=== PATIENT | male | born 1965 | race African-American/Black ===

== ENCOUNTER 2025-07-30 23:28 | Observation (INO) ==
--- NOTE | 2025-07-30 23:42 | Emergency Department Note ---
Impression & Plan Suicidal ideation, Altered mental status, Acute hyperglycemia, Acute dehydration ED Provider Note Name: SARAVANAN PENA Age: 60 Sex: Male Arrives Via: Ambulance Informant: Patient, EMS, nursing staff ED Provider: Dustin Paris MD Chief Complaint: Suicidal ideation Impression: As per impressions above Medical Decision Makin-year-old gentleman with a history of diabetes, anxiety/depression, alcoholism, addiction to crack cocaine. Patient was recently hospitalized at [facility] from the [facility]. Patient developed worsening thoughts of wanting to harm self and due to suicidal ideation was transferred to [facility] for further evaluation. Patient's arrival he was apparently quite altered and I was immediately called to his bedside. Patient is laying in bed answering questions or keeping eyes closed and symptoms of altered mental status have essentially resolved. Patient does not exhibit any postictal type exam. Laboratory workup began and given report of elevated blood sugar by EMS I did obtain a VBG. Fortunately patient is not acidotic. He is quite hyperglycemic with a blood sugar greater than 400. A CT scan of the head is unremarkable. Labs are unremarkable otherwise with no evidence of infectious etiology. There was a report of some hypoglycemia for EMS however his oxygen is good here and a chest x-ray is unremarkable with clear lung sounds by my examination. Given the patient's significant elevated blood sugar and really minimal information about him including this episode of altered mental status I do not feel medically clear him in a reasonable amount of time for further psychiatric evaluation. Thus hospitalist service was consulted for further management. Triage/Nursing Notes reviewed by Me External Chart Review by me: No previous records available Differential:Mood disorder, infection, hypoglycemia, electrolyte abnormalities, cardiac sources, intracerebral event, toxicologic, trauma, neurologic, as well as other pathologies. Vital Signs: reviewed and remarkable for no significant abnormalities Interventions: Normal saline bolus. Discussed with hospitalist and will defer insulin management to them Labs:ED labs Reviewed by me and remarkable for significantly elevated blood sugar Imagin view chest x-ray as per my interpretation no infiltrate or effusion appreciated. CT of the head without contrast as per my informal interpretation no hemorrhage, mass effect appreciated EKG:As per my interpretation. Indication altered mental status. Sinus bradycardia 47 bpm with a QTc of 408. There is no ectopy nor ischemia. There are no previous EKGs for comparison Cardiac/Tele Monitoring: Cardiac Monitoring: An Order was placed for continuous cardiac monitoring. The monitor shows a rate of 50 with a sinus migel rhythm. Consults:I discussed case with Dr. Langston who will further evaluate and manage. Plan: Disposition:Hospitalization. Condition: Fair History of Present Illness: 60-year-old male arrives for evaluation of suicidal ideation in addition to altered mental status. [facility]. Patient comes from the [facility]. He notes that since getting has had worsening depression. He now wishes to kill himself. No specific plan. EMS was contacted as this was beyond capabilities of [facility]. EMS reports that blood sugar on patient was reading too high to give number as well as patient having oxygen in the 80s. He was placed on oxygen on the way to the ER. On arrival patient became worsening confused and altered not responding to questions. I was called directly to the room. On my evaluation patient is answering questions. He states he just is not feeling well. He notes that he is a diabetic and has not had his insulin since around lunchtime. He thinks he has been having a normal dosing. Notes a history of severe pancreatitis regarding abdominal surgery following severe alcohol addiction. Denies any recent alcohol use. States he last used cocaine about 5 days ago Past Medical History:Diabetes, anxiety depression Home Medications: Insulin, Lexapro, trazodone Allergies: No reported drug allergy Vitals:Blood Pressure: 131/86, Pulse 62, RR 14, T 37.4C, O2 99% on RA Physical Exam: GENERAL: Patient is distant/dehydrated appearing and in minimal distress. HEAD: AT/NC RESPIRATORY: No dyspnea. Clear to auscultation and equal bilaterally. CARDIOVASCULAR: Regular rate and rhythm.No murmur appreciated. GASTROINTESTINAL: Abdomen soft, non-tender, no peritonitis. Large ventral scar (states due to pancreatitis from alcohol abuse) EXTREMITIES: Normal motion all extremities, no cyanosis, no edema. NEUROLOGIC: Somnolent but answering questions. No focal neurologic deficits appreciated SKIN: No rash, no jaundice, no diaphoresis. PSYCH: Appropriate GCS: 14 ED Course: Times/Reassessments: Patient stable sleeping in bed and Dustin Paris MD Past Med/Surg History Problem List (Updated 07/31/25 @ 03:29 by Dustin Paris MD) Acute dehydration (Acute) Acute hyperglycemia (Acute) Altered mental status (Acute) Suicidal ideation (Acute) Social History Smoking Status: Current every day smoker Allergies Allergies Allergy/AdvReac Type Severity Reaction Status Date / Time No Known Allergies Allergy Verified 07/31/25 03:17 Home Meds Home Medications Medication Instructions Recorded Confirmed Lexapro 10 mg PO DAILY 07/31/25 07/31/25 insulin lispro 1 - 12 units subcut TID 07/31/25 07/31/25 trazodone 300 mg PO HS 07/31/25 07/31/25 Results & Data (ED) Vital Signs Vital Signs - 24 hr 07/30/25 23:36 07/30/25 23:37 07/30/25 23:37 Temperature Temperature Source Pulse Rate 53 L Pulse Rate from SpO2 Sensor Respiratory Rate Respiratory Effort / Characteristics Respiratory Depth Blood Pressure 142/91 H 142/91 H Blood Pressure Mean 103 103 Pulse Oximetry Oxygen Delivery Method Sepsis Recent Fever Within 48 Hours Sepsis New/Unexplained Change in Mental Status Sepsis Action Taken by Nursing 07/30/25 23:37 07/30/25 23:37 07/30/25 23:37 Temperature Temperature Source Pulse Rate Pulse Rate from SpO2 Sensor Respiratory Rate Respiratory Effort / Characteristics Respiratory Depth Blood Pressure 142/91 H 142/91 H 142/91 H Blood Pressure Mean 103 103 103 Pulse Oximetry Oxygen Delivery Method Sepsis Recent Fever Within 48 Hours Sepsis New/Unexplained Change in Mental Status Sepsis Action Taken by Nursing 07/30/25 23:39 07/30/25 23:39 07/30/25 23:39 Temperature 37.4 C Temperature Source Oral Pulse Rate 59 L 64 Pulse Rate from SpO2 Sensor 61 Respiratory Rate 18 20 Respiratory Effort / Characteristics Non-Labored Non-Labored Respiratory Depth Normal Normal Blood Pressure 142/91 H Blood Pressure Mean 108 Pulse Oximetry 100 100 Oxygen Delivery Method Room Air Sepsis Recent Fever Within 48 Hours No Sepsis New/Unexplained Change in Mental Status No Sepsis Action Taken by Nursing No Action Required 07/30/25 23:42 07/30/25 23:51 07/31/25 00:00 Temperature Temperature Source Pulse Rate 55 L 52 L 55 L Pulse Rate from SpO2 Sensor 56 L 51 L 55 L Respiratory Rate 18 19 14 Respiratory Effort / Characteristics Respiratory Depth Blood Pressure Blood Pressure Mean Pulse Oximetry 100 99 100 Oxygen Delivery Method Sepsis Recent Fever Within 48 Hours Sepsis New/Unexplained Change in Mental Status Sepsis Action Taken by Nursing 07/31/25 00:12 07/31/25 00:18 07/31/25 00:18 Temperature Temperature Source Pulse Rate 60 Pulse Rate from SpO2 Sensor 60 Respiratory Rate 18 Respiratory Effort / Characteristics Respiratory Depth Blood Pressure 144/93 H 144/93 H Blood Pressure Mean 101 101 Pulse Oximetry 100 Oxygen Delivery Method Sepsis Recent Fever Within 48 Hours Sepsis New/Unexplained Change in Mental Status Sepsis Action Taken by Nursing 07/31/25 00:18 07/31/25 00:18 07/31/25 00:18 Temperature Temperature Source Pulse Rate Pulse Rate from SpO2 Sensor Respiratory Rate Respiratory Effort / Characteristics Respiratory Depth Blood Pressure 144/93 H 144/93 H 144/93 H Blood Pressure Mean 101 101 101 Pulse Oximetry Oxygen Delivery Method Sepsis Recent Fever Within 48 Hours Sepsis New/Unexplained Change in Mental Status Sepsis Action Taken by Nursing 07/31/25 00:18 07/31/25 00:21 07/31/25 00:39 Temperature Temperature Source Pulse Rate 57 L 57 L Pulse Rate from SpO2 Sensor 53 L 57 L Respiratory Rate 15 22 Respiratory Effort / Characteristics Respiratory Depth Blood Pressure 148/102 H Blood Pressure Mean 109 Pulse Oximetry 100 100 Oxygen Delivery Method Sepsis Recent Fever Within 48 Hours Sepsis New/Unexplained Change in Mental Status Sepsis Action Taken by Nursing 07/31/25 00:39 07/31/25 00:39 07/31/25 00:39 Temperature Temperature Source Pulse Rate Pulse Rate from SpO2 Sensor Respiratory Rate Respiratory Effort / Characteristics Respiratory Depth Blood Pressure 148/102 H 148/102 H 148/102 H Blood Pressure Mean 109 109 109 Pulse Oximetry Oxygen Delivery Method Sepsis Recent Fever Within 48 Hours Sepsis New/Unexplained Change in Mental Status Sepsis Action Taken by Nursing 07/31/25 00:39 07/31/25 00:39 07/31/25 00:42 Temperature Temperature Source Pulse Rate 59 L 60 Pulse Rate from SpO2 Sensor 61 61 Respiratory Rate 20 19 Respiratory Effort / Characteristics Respiratory Depth Blood Pressure 148/102 H Blood Pressure Mean 109 Pulse Oximetry 100 100 Oxygen Delivery Method Sepsis Recent Fever Within 48 Hours Sepsis New/Unexplained Change in Mental Status Sepsis Action Taken by Nursing 07/31/25 00:51 07/31/25 01:00 07/31/25 01:00 Temperature Temperature Source Pulse Rate 66 65 Pulse Rate from SpO2 Sensor 63 64 Respiratory Rate 19 22 Respiratory Effort / Characteristics Respiratory Depth Blood Pressure 131/86 Blood Pressure Mean 100 Pulse Oximetry 100 100 Oxygen Delivery Method Sepsis Recent Fever Within 48 Hours Sepsis New/Unexplained Change in Mental Status Sepsis Action Taken by Nursing 07/31/25 01:00 07/31/25 01:00 07/31/25 01:00 Temperature Temperature Source Pulse Rate Pulse Rate from SpO2 Sensor Respiratory Rate Respiratory Effort / Characteristics Respiratory Depth Blood Pressure 131/86 131/86 131/86 Blood Pressure Mean 100 100 100 Pulse Oximetry Oxygen Delivery Method Sepsis Recent Fever Within 48 Hours Sepsis New/Unexplained Change in Mental Status Sepsis Action Taken by Nursing 07/31/25 01:12 07/31/25 01:20 07/31/25 01:21 Temperature Temperature Source Pulse Rate 61 63 Pulse Rate from SpO2 Sensor 59 L 62 Respiratory Rate 18 18 Respiratory Effort / Characteristics Non-Labored Respiratory Depth Normal Blood Pressure Blood Pressure Mean Pulse Oximetry 100 100 Oxygen Delivery Method Sepsis Recent Fever Within 48 Hours Sepsis New/Unexplained Change in Mental Status Sepsis Action Taken by Nursing 07/31/25 01:30 07/31/25 01:42 07/31/25 01:51 Temperature Temperature Source Pulse Rate 60 61 63 Pulse Rate from SpO2 Sensor 60 62 61 Respiratory Rate 16 23 15 Respiratory Effort / Characteristics Respiratory Depth Blood Pressure Blood Pressure Mean Pulse Oximetry 100 100 100 Oxygen Delivery Method Sepsis Recent Fever Within 48 Hours Sepsis New/Unexplained Change in Mental Status Sepsis Action Taken by Nursing 07/31/25 02:07 07/31/25 02:10 07/31/25 02:21 Temperature Temperature Source Pulse Rate 56 L 62 62 Pulse Rate from SpO2 Sensor 58 L 63 62 Respiratory Rate 13 22 16 Respiratory Effort / Characteristics Respiratory Depth Blood Pressure Blood Pressure Mean Pulse Oximetry 100 100 100 Oxygen Delivery Method Sepsis Recent Fever Within 48 Hours Sepsis New/Unexplained Change in Mental Status Sepsis Action Taken by Nursing 07/31/25 02:30 07/31/25 02:42 07/31/25 02:51 Temperature Temperature Source Pulse Rate 63 64 62 Pulse Rate from SpO2 Sensor 63 64 63 Respiratory Rate 16 20 14 Respiratory Effort / Characteristics Respiratory Depth Blood Pressure Blood Pressure Mean Pulse Oximetry 100 100 99 Oxygen Delivery Method Sepsis Recent Fever Within 48 Hours Sepsis New/Unexplained Change in Mental Status Sepsis Action Taken by Nursing 07/31/25 03:00 Temperature Temperature Source Pulse Rate Pulse Rate from SpO2 Sensor Respiratory Rate Respiratory Effort / Characteristics Respiratory Depth Blood Pressure Blood Pressure Mean Pulse Oximetry Oxygen Delivery Method Room Air Sepsis Recent Fever Within 48 Hours Sepsis New/Unexplained Change in Mental Status Sepsis Action Taken by Nursing Laboratory Data 07/31/25 00:17 07/31/25 00:17 Lab Results 07/31/25 Range/Units 00:17 WBC 6.43 (4.8-10.8) K/ul RBC 4.03 L (4.70-6.10) M/uL Hgb 11.4 L (14.0-18.0) g/dL Hct 33.7 L (42.0-52.0) % MCV 83.6 (80.0-100.0) fL MCH 28.3 (25.0-34.0) pg MCHC 33.8 (32.0-36.0) g/dL RDW Std Deviation 38.4 (36.4-46.3) fL RDW Coeff of Prashanth 12.6 (11.5-14.5) % Plt Count 207 (130-400) K/uL MPV 10.6 (9.4-12.4) fL Immature Gran % (Auto) 0.2 % Neut % (Auto) 56.9 % Lymph % (Auto) 32.0 % Gallia % (Auto) 9.2 % Eos % (Auto) 1.4 % Baso % (Auto) 0.3 % Neut # (Auto) 3.66 (1.40-6.50) K/uL Lymph # (Auto) 2.06 (1.20-3.40) K/uL Gallia # (Auto) 0.59 (0.11-0.59) K/uL Eos # (Auto) 0.09 (0.00-0.50) K/uL Baso # (Auto) 0.02 (0.00-0.20) K/uL Immature Gran # (Auto) 0.01 (0.01-0.20) K/uL VBG pH 7.36 (7.36-7.41) VBG pCO2 49 (38-50) mmHg VBG pO2 63 mmHg VBG HCO3 28 mmol/L VBG O2 Saturation 95.7 % VBG Base Excess 1.5 mEq/L Sodium 133 L (136-145) mmol/L Potassium 3.8 (3.5-5.1) mmol/L Chloride 101 (98-107) mmol/L Carbon Dioxide 28 (21-32) mmol/L Anion Gap 4 (3-11) BUN 11 (6-23) mg/dl Creatinine 1.13 (0.6-1.4) mg/dl Est Cr Clr Drug Dosing Not Reportable eGFR 74.41 BUN/Creatinine Ratio 9.7 L (10-20) Glucose 446 H* (70-99(Fasting)) mg/dl Calcium 8.5 L (8.6-10.3) mg/dl Magnesium 1.9 (1.7-2.4) mg/dl Total Bilirubin 0.3 (0.2-1.0) mg/dl Direct Bilirubin 0.1 (0-0.2) mg/dl AST 12 L (13-39) U/L ALT 14 (7-52) U/L Alkaline Phosphatase 55 (34-104) U/L Total Creatine Kinase 102 (30-223) U/L Troponin I High Sens 5.4 (0-20) pg/ml Total Protein 6.0 (6.0-8.3) gm/dl Albumin 3.5 (3.4-5.0) gm/dl Lipase 8 L (11-82) U/L Procalcitonin < 0.02 (0-0.5) ng/ml TSH 1.332 (0.300-4.500) uIu/ml Salicylates < 3.0 L (3.0-30) mg/dl Acetaminophen 3 L (10-30) ug/ml Ethyl Alcohol mg/dL < 10.0 (<10.0) mg/dl Administered Medications Discontinued Medications Sodium Chloride (Nss) 1,000 mls @ 999 mls/hr IV .[id number] ONE Stop: 07/31/25 00:38 Last Admin: 07/31/25 00:48 Dose: 999 mls/hr Documented By: [facility] Imaging Data Radiologist's Impression: Chest X-Ray 07/30/25 23:39 EXAM: XR chest 1V portable CLINICAL HISTORY: Reported hypoxia TECHNIQUE: An X-ray image of the chest is obtained in AP projection. COMPARISON: No prior studies are available for comparison. FINDINGS: Pulmonary Parenchyma: Lungs are clear bilaterally. No evidence of consolidation, collapse, or focal opacities. No pulmonary nodules are identified. Blunted both costophrenic angle by minimal pleural effusion/pleural reaction. Heart and Mediastinum: Heart size and shape are normal. No mediastinal widening or masses. No hilar or mediastinal lymphadenopathy. Bony Thorax: Bony thorax appears intact without fractures or deformities. Soft Tissues: Soft tissues overlying the chest wall are unremarkable. IMPRESSION: 1. Blunted both costophrenic angle by minimal pleural effusion/pleural reaction. 2. Otherwise, lungs are clear bilaterally. No evidence of consolidation, collapse, or focal opacities. Electronically signed by Dionisio Soni 07-31-2025 01:[address] 07/30/25 23:42 EXAM: CT head/brain wo con CLINICAL HISTORY: Altered Mental Status. TECHNIQUE: Axial non-contrast CT scan of the brain was performed from the skull base to the high parietal region in axial, sagittal and coronal reconstructions. One of the following dose reduction techniques was utilized for this exam.Automated exposure control, adjustment of the mA and/or kV according to patient size, and use of iterative reconstruction. COMPARISON: None. FINDINGS: Brain Parenchyma: Normal attenuation of the cerebral hemispheres, cerebellum, and brainstem. No evidence of acute infarct, hemorrhage, or mass effect. No abnormal areas of hypo- or hyperattenuation. Involutional brain changes are seen in the form of mild dilatation of the ventricular system associated with prominent subarachnoid basal cisterns and relative exaggeration of the cortical sulci on both sides. Cerebellum and Brainstem: No masses, lesions, or areas of abnormal density. Orbits: Normal appearance of the globes, optic nerves, and extraocular muscles. No evidence of orbital masses or abnormal density. Sinuses: Clear paranasal sinuses. No evidence of sinusitis or mucosal thickening. Deviated nasal septum to the left Mastoid Air Cells: Clear mastoid air cells. No evidence of mastoiditis. Skull: Normal skull morphology. subtle thickened calvarial bones IMPRESSION: 1. No acute intracranial or extracranial abnormalities. 2. Mild senile changes. Electronically signed by Dionisio Soni 07-31-2025 01:42 AM Discharge Plan Visit Data Chief Complaint: Mental Health Evaluation Stated Complaint: SI WITH A PLAN ED Provider: Dustin Paris Discharge Problem: Suicidal ideation, Altered mental status, Acute hyperglycemia, Acute dehydration Patient Disposition: Admitted As Inpatient Condition: Fair Discharge Instructions Interventions: ED Discharge Assessment Last Done: 07/31/25 03:00 Forms Stand Alone Forms: adjust [facility] [employer], Suicide Prevention Resources Prescriptions Prescriptions: No Action insulin lispro 200 units/mL pen injector 1 - 12 units subcut TID Lexapro 10 mg tablet 10 mg PO DAILY trazodone 300 mg PO HS Referrals Referrals: PCP,NO [Physician] - Discharge Problem: Altered mental status Qualifiers: Altered mental status type: transient alteration of awareness Qualified Code(s): R40.4 - Transient alteration of awareness
[2025-07-31 00:40] LABS: Base Excess VBG 1.5 mEq/L; HCO3 VBG 28 mmol/L; Oxygen Saturation VBG 95.7 %; PCO2 VBG 49 mmHg (38-50); PO2 VBG 63 mmHg; pH VBG 7.36 (7.36-7.41)
[2025-07-31 00:44] LABS: Hematocrit (blood only) 33.7 % (42.0-52.0); Hemoglobin 11.4 g/dL (14.0-18.0); Immature Granulocytes # (auto) 0.01 K/uL (0.01-0.20); Immature Granulocytes % (auto) 0.2 %; Mean Corpuscular Hemoglobin 28.3 pg (25.0-34.0); Mean Corpuscular Volume 83.6 fL (80.0-100.0); Platelet Count 207 K/uL (130-400); RDW Standard Deviation 38.4 fL (36.4-46.3); Red Blood Count 4.03 M/uL (4.70-6.10); White Blood Count 6.43 K/ul (4.8-10.8)
[2025-07-31] MEDS: SODIUM CHLORIDE 0.9% 1,000 ML IV ONE (00:48)
[2025-07-31 01:00] LABS: Acetaminophen 3 ug/ml (10-30); Salicylate < 3.0 mg/dl (3.0-30)
[2025-07-31 01:03] LABS: Alanine Aminotransferase 14.0 U/L (7-52); Albumin Level 3.5 gm/dl (3.4-5.0); Alkaline Phosphatase 55.0 U/L (34-104); Bilirubin,Total 0.3 mg/dl (0.2-1.0); Creatine Kinase 102.0 U/L (30-223); Lipase 8.0 U/L (11-82); Magnesium 1.9 mg/dl (1.7-2.4); Total Protein 6.0 gm/dl (6.0-8.3)
[2025-07-31 01:13] LABS: Anion Gap 4 (3-11); Blood Urea Nitrogen 11 mg/dl (6-23); Calcium 8.5 mg/dl (8.6-10.3); Carbon Dioxide 28 mmol/L (21-32); Chloride 101 mmol/L (98-107); Glucose 446 mg/dl (70-99(Fasting)); Potassium 3.8 mmol/L (3.5-5.1); Sodium 133 mmol/L (136-145)
[2025-07-31 01:19] LABS: Thyroid Stimulating Hormone 1.332 uIu/ml (0.300-4.500)
--- NOTE | 2025-07-31 01:27 | XRay Report ---
EXAM: XR chest 1V portable CLINICAL HISTORY: Reported hypoxia TECHNIQUE: An X-ray image of the chest is obtained in AP projection. COMPARISON: No prior studies are available for comparison. FINDINGS: Pulmonary Parenchyma: Lungs are clear bilaterally. No evidence of consolidation, collapse, or focal opacities. No pulmonary nodules are identified. Blunted both costophrenic angle by minimal pleural effusion/pleural reaction. Heart and Mediastinum: Heart size and shape are normal. No mediastinal widening or masses. No hilar or mediastinal lymphadenopathy. Bony Thorax: Bony thorax appears intact without fractures or deformities. Soft Tissues: Soft tissues overlying the chest wall are unremarkable. IMPRESSION: 1. Blunted both costophrenic angle by minimal pleural effusion/pleural reaction. 2. Otherwise, lungs are clear bilaterally. No evidence of consolidation, collapse, or focal opacities. Electronically signed by Dionisio Soni 07-31-2025 01:26 AM
--- NOTE | 2025-07-31 01:43 | CT Scan Report ---
EXAM: CT head/brain wo con CLINICAL HISTORY: Altered Mental Status. TECHNIQUE: Axial non-contrast CT scan of the brain was performed from the skull base to the high parietal region in axial, sagittal and coronal reconstructions. One of the following dose reduction techniques was utilized for this exam.Automated exposure control, adjustment of the mA and/or kV according to patient size, and use of iterative reconstruction. COMPARISON: None. FINDINGS: Brain Parenchyma: Normal attenuation of the cerebral hemispheres, cerebellum, and brainstem. No evidence of acute infarct, hemorrhage, or mass effect. No abnormal areas of hypo- or hyperattenuation. Involutional brain changes are seen in the form of mild dilatation of the ventricular system associated with prominent subarachnoid basal cisterns and relative exaggeration of the cortical sulci on both sides. Cerebellum and Brainstem: No masses, lesions, or areas of abnormal density. Orbits: Normal appearance of the globes, optic nerves, and extraocular muscles. No evidence of orbital masses or abnormal density. Sinuses: Clear paranasal sinuses. No evidence of sinusitis or mucosal thickening. Deviated nasal septum to the left Mastoid Air Cells: Clear mastoid air cells. No evidence of mastoiditis. Skull: Normal skull morphology. subtle thickened calvarial bones IMPRESSION: 1. No acute intracranial or extracranial abnormalities. 2. Mild senile changes. Electronically signed by Dionisio Soni 07-31-2025 01:42 AM
[2025-07-31] MEDS ORDERED: LANTUS PER UNIT CHARGE SQ STA (01:46)
[2025-07-31] MEDS ORDERED: CARBOHYDRATES FOR HYPOGLYCEMIA PO PRN (01:46)
[2025-07-31] MEDS ORDERED: GLUCOSE 40% GEL 15 GM TUBE PO PRN (01:46)
[2025-07-31] MEDS ORDERED: GLUCAGON FOR INJ 1 MG VIAL SQ PRN (01:46)
[2025-07-31] MEDS ORDERED: DEXTROSE 50% 50 ML SYRINGE IV PRN (01:46)
[2025-07-31] MEDS ORDERED: GLUCOSE 10 TAB/TUBE PO PRN (01:46)
--- NOTE | 2025-07-31 01:47 | History & Physical Report ---
Date of Service July 31, 2025 Assessment & Plan (1) Encephalopathy: Plan: Assessment and plan below following discussion of case with ED provider and reviewing patient history/pertinent normal/abnormal diagnostic test results. Encephalopathy Improved mentation after initial fluid bolus administered at the ER. Patient still intermittently lethargic during exam. Multifactorial Hyperglycemia, DM2 insulin requiring, suboptimal control as of last hemoglobin A1c of 10.1 from 2022 Uncontrolled hypertension, patient not on maintenance medications chronic hyponatremia, corrected serum sodium for hyperglycemia currently 139 chronic anemia, hemoglobin at baseline mood disorder, patient with suicidal ideations history of substance abuse past alcohol use ongoing tobacco abuse Admit to med/tele Basal bolus insulin, ISS BG goal 110-140, carb con coverage, update hemoglobin A1c Initiate losartan for BP control Psych consult re: suicidality One-to-one/suicide precautions until seen by service Nicotine patch as needed DVT prophylaxis. Lovenox subcu Full code Text document was generated using [employer] voice recognition software. It may contain grammatical or spelling errors. Kindly contact undersigned for clarification of any documentation item in question. History of Present Illness Chief Complaint: Confusion as per records Sick as per patient Primary Care Provider: NO PCP History obtained from patient and records. Medical history significant for hypertension, hyperlipidemia, DM2 insulin requiring, chronic hyponatremia, history of withdrawal seizures as per records, chronic pancreatitis as per records, chronic anemia (baseline hemoglobin of 11), mood disorder, history of substance abuse, past alcohol use, glaucoma, ongoing tobacco abuse. Patient is a resident of [place], [place] who sought voluntary admission at [facility] last 07/27 for depression and substance abuse. Patient noted to be drowsy at facility yesterday. Blood sugar noted to be high, 500s. SBP 180s, O2 sats 88 on room air. Patient denies headache, chest pain, SOB, cough, abdominal pain. Patient brought to ER for evaluation. Medical History as above Surgical History : Pancreatic cyst surgery, right arm surgery Family History : Stroke, DM, hypertension, substance abuse Personal/Social history : 1 pack daily, past alcohol abuse, currently unemployed Allergies Allergy/AdvReac Type Severity Reaction Status Date / Time No Known Allergies Allergy Verified 07/31/25 03:17 Home Medications Medication Instructions Recorded Confirmed Type Lexapro 10 mg PO DAILY 07/31/25 07/31/25 History insulin lispro 1 - 12 units subcut TID 07/31/25 07/31/25 History trazodone 300 mg PO HS 07/31/25 07/31/25 History Past Med/Surg History Problem List (Updated 07/31/25 @ 04:00 by Miguel A Langston MD) Encephalopathy Acute dehydration (Acute) Acute hyperglycemia (Acute) Altered mental status (Acute) Suicidal ideation (Acute) Social History Smoking Status: Current every day smoker Review of Systems Review of Systems: As per HPI, all other systems reviewed and negative Physical Exam Physical Exam: GENERAL: Episodic lethargy, comfortable, pleasant, no respiratory distress SKIN: Normal color, warm HEENT: [place] palpebral conjunctivae, no ptosis, dry buccal mucosa NECK : Supple, no tenderness CHEST : CTA, no tenderness HEART : RRR, no obvious murmurs ABDOMEN: Some distention, nontender EXTREMITIES : No LE swelling/tenderness, palpable pulses, no other conspicuous deformities noted NEUROLOGIC : Episodic lethargy, no facial asymmetry, gait and stance not assessed Results & Data Results & Data Vital Signs (Past 12 Hours) Vital Signs Temp Pulse Resp BP Pulse Ox O2 Del Method 07/31/25 01:30 60 16 100 07/31/25 01:21 63 18 100 07/31/25 01:12 61 18 100 07/31/25 01:00 131/86 07/31/25 01:00 131/86 07/31/25 01:00 131/86 07/31/25 01:00 131/86 07/31/25 01:00 65 22 100 07/31/25 00:51 66 19 100 07/31/25 00:42 60 19 100 07/31/25 00:39 59 L 20 100 07/31/25 00:39 148/102 H 07/31/25 00:39 148/102 H 07/31/25 00:39 148/102 H 07/31/25 00:39 148/102 H 07/31/25 00:39 148/102 H 07/31/25 00:21 57 L 22 100 07/31/25 00:18 57 L 15 100 07/31/25 00:18 144/93 H 07/31/25 00:18 144/93 H 07/31/25 00:18 144/93 H 07/31/25 00:18 144/93 H 07/31/25 00:18 144/93 H 07/31/25 00:12 60 18 100 07/31/25 00:00 55 L 14 100 07/30/25 23:51 52 L 19 99 07/30/25 23:42 55 L 18 100 07/30/25 23:39 64 20 100 07/30/25 23:39 37.4 C 59 L 18 142/91 H 100 Room Air 07/30/25 23:37 142/91 H 07/30/25 23:37 142/91 H 07/30/25 23:37 142/91 H 07/30/25 23:37 142/91 H 07/30/25 23:37 142/91 H 07/30/25 23:36 53 L Laboratory Results Laboratory Results WBC 6.43 K/ul (4.8-10.8) 07/31/25 00:17 RBC 4.03 M/uL (4.70-6.10) L 07/31/25 00:17 Hgb 11.4 g/dL (14.0-18.0) L 07/31/25 00:17 Hct 33.7 % (42.0-52.0) L 07/31/25 00:17 MCV 83.6 fL (80.0-100.0) 07/31/25 00:17 MCH 28.3 pg (25.0-34.0) 07/31/25 00:17 MCHC 33.8 g/dL (32.0-36.0) 07/31/25 00:17 RDW Std Deviation 38.4 fL (36.4-46.3) 07/31/25 00:17 RDW Coeff of Prashanth 12.6 % (11.5-14.5) 07/31/25 00:17 Plt Count 207 K/uL (130-400) 07/31/25 00:17 MPV 10.6 fL (9.4-12.4) 07/31/25 00:17 Immature Gran % (Auto) 0.2 % 07/31/25 00:17 Neut % (Auto) 56.9 % 07/31/25 00:17 Lymph % (Auto) 32.0 % 07/31/25 00:17 [place] % (Auto) 9.2 % 07/31/25 00:17 Eos % (Auto) 1.4 % 07/31/25 00:17 Baso % (Auto) 0.3 % 07/31/25 00:17 Neut # (Auto) 3.66 K/uL (1.40-6.50) 07/31/25 00:17 Lymph # (Auto) 2.06 K/uL (1.20-3.40) 07/31/25 00:17 [place] # (Auto) 0.59 K/uL (0.11-0.59) 07/31/25 00:17 Eos # (Auto) 0.09 K/uL (0.00-0.50) 07/31/25 00:17 Baso # (Auto) 0.02 K/uL (0.00-0.20) 07/31/25 00:17 Immature Gran # (Auto) 0.01 K/uL (0.01-0.20) 07/31/25 00:17 VBG pH 7.36 (7.36-7.41) 07/31/25 00:17 VBG pCO2 49 mmHg (38-50) 07/31/25 00:17 VBG pO2 63 mmHg 07/31/25 00:17 VBG HCO3 28 mmol/L 07/31/25 00:17 VBG O2 Saturation 95.7 % 07/31/25 00:17 VBG Base Excess 1.5 mEq/L 07/31/25 00:17 Sodium 133 mmol/L (136-145) L 07/31/25 00:17 Potassium 3.8 mmol/L (3.5-5.1) 07/31/25 00:17 Chloride 101 mmol/L (98-107) 07/31/25 00:17 Carbon Dioxide 28 mmol/L (21-32) 07/31/25 00:17 Anion Gap 4 (3-11) 07/31/25 00:17 BUN 11 mg/dl (6-23) 07/31/25 00:17 Creatinine 1.13 mg/dl (0.6-1.4) 07/31/25 00:17 Est Cr Clr Drug Dosing Not Reportable 07/31/25 00:17 eGFR 74.41 07/31/25 00:17 BUN/Creatinine Ratio 9.7 (10-20) L 07/31/25 00:17 Glucose 446 mg/dl (70-99(Fasting)) H* 07/31/25 00:17 Calcium 8.5 mg/dl (8.6-10.3) L 07/31/25 00:17 Magnesium 1.9 mg/dl (1.7-2.4) 07/31/25 00:17 Total Bilirubin 0.3 mg/dl (0.2-1.0) 07/31/25 00:17 Direct Bilirubin 0.1 mg/dl (0-0.2) 07/31/25 00:17 AST 12 U/L (13-39) L 07/31/25 00:17 ALT 14 U/L (7-52) 07/31/25 00:17 Alkaline Phosphatase 55 U/L (34-104) 07/31/25 00:17 Total Creatine Kinase 102 U/L (30-223) 07/31/25 00:17 Troponin I High Sens 5.4 pg/ml (0-20) 07/31/25 00:17 Total Protein 6.0 gm/dl (6.0-8.3) 07/31/25 00:17 Albumin 3.5 gm/dl (3.4-5.0) 07/31/25 00:17 Lipase 8 U/L (11-82) L 07/31/25 00:17 Procalcitonin < 0.02 ng/ml (0-0.5) 07/31/25 00:17 TSH 1.332 uIu/ml (0.300-4.500) 07/31/25 00:17 Salicylates < 3.0 mg/dl (3.0-30) L 07/31/25 00:17 Acetaminophen 3 ug/ml (10-30) L 07/31/25 00:17 Ethyl Alcohol mg/dL < 10.0 mg/dl (<10.0) 07/31/25 00:17 Impressions Chest X-Ray 07/30/25 23:39 EXAM: XR chest 1V portable CLINICAL HISTORY: Reported hypoxia TECHNIQUE: An X-ray image of the chest is obtained in AP projection. COMPARISON: No prior studies are available for comparison. FINDINGS: Pulmonary Parenchyma: Lungs are clear bilaterally. No evidence of consolidation, collapse, or focal opacities. No pulmonary nodules are identified. Blunted both costophrenic angle by minimal pleural effusion/pleural reaction. Heart and Mediastinum: Heart size and shape are normal. No mediastinal widening or masses. No hilar or mediastinal lymphadenopathy. Bony Thorax: Bony thorax appears intact without fractures or deformities. Soft Tissues: Soft tissues overlying the chest wall are unremarkable. IMPRESSION: 1. Blunted both costophrenic angle by minimal pleural effusion/pleural reaction. 2. Otherwise, lungs are clear bilaterally. No evidence of consolidation, collapse, or focal opacities. Electronically signed by Dionisio Soni 07-31-2025 01:[address] 07/30/25 23:42 EXAM: CT head/brain wo con CLINICAL HISTORY: Altered Mental Status. TECHNIQUE: Axial non-contrast CT scan of the brain was performed from the skull base to the high parietal region in axial, sagittal and coronal reconstructions. One of the following dose reduction techniques was utilized for this exam.Automated exposure control, adjustment of the mA and/or kV according to patient size, and use of iterative reconstruction. COMPARISON: None. FINDINGS: Brain Parenchyma: Normal attenuation of the cerebral hemispheres, cerebellum, and brainstem. No evidence of acute infarct, hemorrhage, or mass effect. No abnormal areas of hypo- or hyperattenuation. Involutional brain changes are seen in the form of mild dilatation of the ventricular system associated with prominent subarachnoid basal cisterns and relative exaggeration of the cortical sulci on both sides. Cerebellum and Brainstem: No masses, lesions, or areas of abnormal density. Orbits: Normal appearance of the globes, optic nerves, and extraocular muscles. No evidence of orbital masses or abnormal density. Sinuses: Clear paranasal sinuses. No evidence of sinusitis or mucosal thickening. Deviated nasal septum to the left Mastoid Air Cells: Clear mastoid air cells. No evidence of mastoiditis. Skull: Normal skull morphology. subtle thickened calvarial bones IMPRESSION: 1. No acute intracranial or extracranial abnormalities. 2. Mild senile changes. Electronically signed by Dionisio Soni 07-31-2025 01:42 AM Diagnostic Findings EKG as per my interpretation :Rate 45, sinus bradycardia, normal axis, no ischemia
[2025-07-31] MEDS ORDERED: PROMETHAZINE 6.25 MG/50.25 ML BAG IV PRN (03:17)
[2025-07-31] MEDS ORDERED: ACETAMINOPHEN 325 MG TAB PO PRN (03:17)
[2025-07-31] MEDS: LANTUS PER UNIT CHARGE SQ STA (04:04)
[2025-07-31] MEDS: INSULIN ASPART PER UNIT CHARGE SC SCH (04:04)
[2025-07-31 04:18] LABS: Appearance Urine Clear (Clear); Glucose Urine UA 3+ (Negative)
[2025-07-31] MEDS: LOSARTAN POTASSIUM 25 MG TAB PO SCH (04:34)
[2025-07-31] MEDS: Patient's HEIGHT &/or WEIGHT Needed STA (04:46)
[2025-07-31 05:12] LABS: Amphetamines+Metham, Urine Neg (Neg); MDMA (Ecstacy), Urine Neg (Neg); Marijuana, Urine Neg (Neg)
[2025-07-31 06:58] VITALS: TEMP 98.1
[2025-07-31] MEDS ORDERED: PHARMACY GLYCEMIC MGMT CONSULT PRN (07:48)
[2025-07-31] MEDS ORDERED: ESCITALOPRAM OXALATE 20 MG TAB PO SCH (09:00)
[2025-07-31] MEDS: ENOXAPARIN INJ 40 MG/0.4 ML SYR SQ SCH (09:09)
[2025-07-31] MEDS: ESCITALOPRAM OXALATE 20 MG TAB PO SCH (09:09)
[2025-07-31 09:53] LABS: Hemoglobin A1C 6.9 % (4.5-5.6)
--- NOTE | 2025-07-31 10:38 | Psychiatric Consultation ---
Date of Consultation July 31, 2025 Impression / Recommendations Impression Diagnostically consistent with adjustment disorder with depressed mood vs complicated bereavement vs component of depression 2/2 medical issues. Encouragingly today he is denying SI and is future-oriented about returning to [facility]. Acute risk of self-harm is low given improvement in mood and denial of SI, strong deterrents to suicide, plan to avoid substance use, strong faith beliefs, hopefulness. Chronic risk is moderate given some non-modifiable risk factors psychiatric co-morbid diagnoses, periods of impulsivity, prior psychiatric hospitalizations but also with protective factors including good social support, sense of responsibility to family and social supports, positive coping skills, positive problem solving, willingness to engage with treatment and capacity for self-observation. Counseled on ways to reduce acute and chronic risk including engaging with residential treatment, utilizing supports, taking medication, and using coping skills. He is not interested in voluntary psychiatric treatment, nor is this deemed necessary at this time. He doesn't have any 302 criteria. Agree with his plan to return to [facility] as substance use treatment remains most significant modifiable risk factor to reduce his acute and chronic risk of self-harm. Overall, I spent a total of 60 minutes with this case including review of chart records, review of labwork, direct evaluation of the patient at bedside, counseling the patient, discussion of the patient with the hospitalist provider, discussion with the psychiatric liason during clinical rounds and documentation in the electronic health record. (1) Encephalopathy: (2) Adjustment disorder with depressed mood: Plan -Doesn't require 1-on-1 -Can discharge back to [facility] -No imminent safety concerns from psychiatric standpoint -Reviewed safety planning including ways to reach out for support in the future should SI re-occur and counseled on limiting access to lethal means (he denies any current access to guns) Psych History Identifying Data Jesse Barboza is a 60 yo man with a history of depression, anxiety, polysubstance use disorder, hypertension, hyperlipidemia, DM2 insulin requiring, chronic hyponatremia, history of withdrawal seizures as per records, chronic pancreatitis as per records, chronic anemia (baseline hemoglobin of 11), glaucoma admitted medically for SI and altered mental status with elevated blood glucose. Psychiatry consulted for suicidal ideation. Chief Complaint "I'm good now". History of Present Illness Jesse was brought to the hospital from [facility], where he is receiving residential substance use treatment for cocaine use, after he developed increased suicidal ideation. On arrival to the emergency room he was noted to have confusion and elevated blood glucose and was admitted medically. Today he is fully oriented and reports feeling much better physically with improvement of his blood sugar. States he was experiencing suicidal thoughts without plan or intent for a couple of days while at [facility] which he attributes to grief from recent of his of many years and his mother. Today he denies suicidal thoughts stating "I am good now". He attributes this improvement in his mood and resolution of suicidal ideation to feeling better physically, "prayer" and "God do not like suicide". He describes significant deterrents to suicide including his faith beliefs, his family (including 5 children) he and feeling that he has people he can talk to at [facility] including other peers and people he has been enjoying playing chess with there. Psychiatric history notable for 1 prior psychiatric hospital about 30 years ago. Denies any history of suicide attempts. States he has been on Lexapro for a long time with good benefit for depression and anxiety. He arrived at [facility] on 07-27-2025 and so far likes it there and is getting treatment for cocaine use. He does not have access to a gun at home, his brother currently has it. He denies any other questions or concerns is hopeful he can return to [facility] today. Allergies Allergy/AdvReac Type Severity Reaction Status Date / Time No Known Allergies Allergy Verified 07/31/25 03:17 Home Medications Medication Instructions Recorded Confirmed Type escitalopram oxalate 10 mg tablet 10 mg PO DAILY 07/31/25 07/31/25 History (Lexapro) insulin aspart U-100 100 unit/mL 1 - 12 unit subcut TID 07/31/25 07/31/25 Histo ry subcutaneous solution (Novolog U-100 Insulin aspart) insulin glargine 100 unit/mL 25 unit subcut HS 07/31/25 07/31/25 History subcutaneous solution levetiracetam 500 mg tablet 500 mg PO BID 07/31/25 07/31/25 History metformin 500 mg tablet 500 mg PO BID 07/31/25 07/31/25 History naltrexone 50 mg tablet 50 mg PO HS 07/31/25 07/31/25 History prazosin 2 mg capsule 2 mg PO HS 07/31/25 07/31/25 History Patient History Social History Smoking Status: Current every day smoker Tobacco Type: Cigarettes Hx Alcohol Use: Yes Alcohol type: beer Hx Substance Use: Yes Last Used Substance: Days (ago) Preferred Language: Russian Communication Ability: Effective Corporate Counselor Required: No Beliefs That Will Affect Care: None Current Living Situation: Homeless Current Living Situation Comment: Currently at [facility] for drug rehab Assistive Devices: None Physical Exam Psychiatric: Orientation: alert and oriented x 3 Apperance: appropriately dressed and appropriately groomed Eye Contact: good eye contact Motor Behavior: no abnormal motor movements Speech: normal rate/rhythm/volume of speech Affect: euthymic affect Mood: no depressed mood and no anxious mood Thought Process: linear/logical thought process Thought Content: reality based without delusions Suicidal Thoughts: denies suicidal thoughts, denies suicidal plan and denies suicidal intent Homicidal Thoughts: denies homicidal thoughts Hallucinations: no auditory hallucinations and no visual hallucinations Cognition: recent memory grossly intact, remote memory grossly intact, attention grossly intact and language grossly intact Estimated Intelligence: consistent with education level Insight: + fair insight Judgment: + fair judgement Vital Signs (Past 24 Hours): Last Vital Signs Temp 36.7 C 07/31/25 06:57 Pulse 118 H 07/31/25 07:35 Resp 19 07/31/25 06:57 BP 120/75 07/31/25 06:57 Pulse Ox 97 07/31/25 06:57 O2 Del Method Room Air 07/31/25 06:57 Results & Data (PSY) Medications Administered Enoxaparin Sodium (Enoxaparin Inj 40 Mg/0.4 Ml Syr) 40 mg SQ QAM JACQUELINE Stop: 08/30/25 08:59 Last Admin: 07/31/25 09:14 Dose: Not Given Documented By: ANUSHA Escitalopram Oxalate (Escitalopram Oxalate 20 Mg Tab) 10 mg PO DAILY JACQUELINE Stop: 08/30/25 08:59 Last Admin: 07/31/25 09:09 Dose: 10 mg Documented By: ANUSHA Insulin Aspart (Insulin Aspart Per Unit Charge) 0 units SC ACHS JACQUELINE Stop: 08/30/25 01:49 Last Admin: 07/31/25 09:08 Dose: 5 units Documented By: ANUSHA Co-signed By: gabbie Admin: 07/31/25 04:04 Dose: 10 units Documented By: JACQUES Co-signed By: MARIVEL Losartan Potassium (Losartan Potassium 25 Mg Tab) 25 mg PO QAM JACQUELINE Stop: 08/30/25 03:19 Last Admin: 07/31/25 04:34 Dose: 25 mg Documented By: MARIVEL Coding Level of Care Code 13086 IN/OBS CONSULT LVL 4,60M Diagnoses Encephalopathy G93.40 Adjustment disorder with depressed mood F43.21
[2025-07-31 11:23] VITALS: BP 146/86; RESP 18; O2SAT 95
--- NOTE | 2025-07-31 15:08 | Discharge Summary ---
Discharge Summary Date of Service July 31, 2025 Principal Dx & Hospital Course #1 = Principal Diagnosis (1) Encephalopathy: 60M with PMH IDDM, HTN, HLD, chronic hyponatremia, substance abuse, alcohol abuse who presents from [facility] last evening with confusion, hyperglycemia and suicidal ideation. Vitals were stable. Labs significant for BG >500. There was no acidosis or evidence of DKA. CXR without any significant pathology, other than blunted diaphrams CTH without pathology. His BG normalized and he quickly became AOx3 answering all questions appropriately. he states this has happened before when his BG levels get high. he states he missed a dose of lantus the day before. He denies any drug or substance use at the facility. Today, he denied any SI and wished to return to his rehab facility. psych was consulted and cleared him for discharge. He feels well and has no complaints. Patient denies F/C, CP, palpitations, SOB, dyspnea, abd pain, N/V/D. Vitals and labs are stable on day of discharge. Regarding etiology of his AMS, likely metabolic encephalopathy secondary to hyperglycemia. He was advised on the importance of not missing any insulin doses and to maintain and consistent carb diet. Notes For Next Care Provider Medication Changes From Visit none Admission HPI Per Admitting Provider History obtained from patient and records. Medical history significant for hypertension, hyperlipidemia, DM2 insulin requiring, chronic hyponatremia, history of withdrawal seizures as per records, chronic pancreatitis as per records, chronic anemia (baseline hemoglobin of 11), mood disorder, history of substance abuse, past alcohol use, glaucoma, ongoing tobacco abuse. Patient is a resident of [place], [place] who sought voluntary admission at [facility] last 07/27 for depression and substance abuse. Patient noted to be drowsy at facility yesterday. Blood sugar noted to be high, 500s. SBP 180s, O2 sats 88 on room air. Patient denies headache, chest pain, SOB, cough, abdominal pain. Patient brought to ER for evaluation. Medical History as above Surgical History : Pancreatic cyst surgery, right arm surgery Family History : Stroke, DM, hypertension, substance abuse Personal/Social history : 1 pack daily, past alcohol abuse, currently unemployed Discharge Exam Vitals and labs reviewed General: Well appearing, NAD HEENT: EOMI, PERRLA Neck: Supple Cardiac: RRR no rubs gallops or murmurs Lungs: CTA no rhonchi wheezing or rales Abd: S NT ND BS positive : Deffered MSK: Full ROM. No obvious deformities Ext: No Edema cyanosis Skin: Warm, Dry Neuro: AOx3 No focal deficits. Psych: Normal Mood Updated Medication List Medication Instructions Recorded Confirmed Type escitalopram oxalate 10 mg tablet 10 mg PO DAILY 07/31/25 07/31/25 History (Lexapro) insulin aspart U-100 100 unit/mL 1 - 12 unit subcut TID 07/31/25 07/31/25 History subcutaneous solution (Novolog U-100 Insulin aspart) insulin glargine 100 unit/mL 25 unit subcut HS 07/31/25 07/31/25 History subcutaneous solution levetiracetam 500 mg tablet 500 mg PO BID 07/31/25 07/31/25 History metformin 500 mg tablet 500 mg PO BID 07/31/25 07/31/25 History naltrexone 50 mg tablet 50 mg PO HS 07/31/25 07/31/25 History prazosin 2 mg capsule 2 mg PO HS 07/31/25 07/31/25 History Hospital Stay Data Consultations 07/31/25 01:17 ED Decision to Admit Stat 07/31/25 04:32 Consult Psychiatry Routine Diagnostic Imagining Performed 07/30/25 23:42 CT head/brain wo con Stat Pending Results Patient Have Any Pending Studies at Discharge: No Discharge Instructions Given to Patient (Per Discharging Provider) Please continue to take your home insulin as prescribed. Do not miss any doses. Please check your blood sugars before meals and before bedtime. Maintain a consistent carb diet. Please ask your PCP to recheck a chest x ray in 4 weeks Total Time Total Time Spent Total Time Spent (In Minutes): 39
[2025-07-31 15:26] VITALS: PULSE 61
--- NOTE | 2025-07-31 18:49 | Electrocardiogram Report ---
Test Reason : Blood Pressure : */* mmHG Vent. Rate : 47 BPM Atrial Rate : 47 BPM P-R Int : 184 ms QRS Dur : 86 ms QT Int : 462 ms P-R-T Axes : 59 74 57 degrees QTcB Int : 408 ms Sinus bradycardia Otherwise normal ECG No previous ECGs available Confirmed by Yuan Miles ([id number]) on 07/31/2025 6:49:06 PM Referred By: [facility] Confirmed By: Yuan Miles
[2025-08-01] MEDS ORDERED: LANTUS PER UNIT CHARGE SQ SCH (09:00)
== END 2025-07-31 16:05 | disposition alcohol treatment (31) | DRG 638 ==
LOC: ED 23:28 → 2W 07-31 01:48 → INTOOBSV 07-31 01:48 → 2W 07-31 03:00